=== PATIENT | male | born 1985 | race American Indian/Alaskan Native ===

== ENCOUNTER 2016-10-13 05:30 | Emergency (ER) | payer SELFPAY ==
[2016-10-13] MEDS ORDERED: TORADOL IM ONE (11:04)
[2016-10-13 11:17] VITALS: BP 130/66
[2016-10-13] MEDS ORDERED: BOOSTRIX IM ONE (11:23)
[2016-10-13] MEDS ORDERED: MARCAINE-EPI 0.5%-1:200,000 INFILTRATI NR (11:30)
[2016-10-13] MEDS ORDERED: MARCAINE 0.5% INFILTRATI ONE (12:26)
--- NOTE | 2016-10-13 18:41 | Emergency Department Report ---
Entered by RIKY TOVAR, acting as scribe for DAMARIS ACOSTA NP. <DAMARIS ACOSTA - Last Filed: 10/13/16 18:41> ED General Adult HPI - General Chief complaint: Skin/Abscess/Foreign Body Stated complaint: BOIL Time Seen by Provider: 10/13/16 10:28 Source: patient Mode of arrival: Ambulatory Limitations: No Limitations - History of Present Illness Initial comments: This is a 30 year old male, well nourished in appearance, no acute signs of distress, with no significant PMHx presents to the ED c/o boil around genital area for 4 days. Patient states he shaved around his genital area and noticed the boil a small boil 2 days after shaving. Patient stated boil is getting big since 2 days ago. Patient reports he put a hot towel on boil with no relief. Patient denies fever, chills, chest pain, SOB, headache, stiff neck, shortness of breath, and pus/draiange. Denies HIV positive or STD exposure. NKDA. KRISHNAN Complaint: Abscess -: days(s) (4) Location: genitals Radiation: non-radiation Severity scale (0 -10): 3 Quality: burning Consistency: constant Improves with: none Worsens with: none Associated Symptoms: denies other symptoms. denies: confusion, chest pain, cough, diaphoresis, fever/chills, headaches, malaise, nausea/vomiting, rash, seizure, syncope, weakness Treatments Prior to Arrival: none - Related Data Previous Rx's Medication Instructions Recorded Last Taken Type Clindamycin [Clindamycin CAP] 450 mg PO Q8HR 7 Days 10/13/16 Unknown Rx Ibuprofen [Motrin 600 MG tab] 600 mg PO Q8H PRN #30 tablet 10/13/16 Unknown Rx Allergies Allergy/AdvReac Type Severity Reaction Status Date / Time No Known Allergies Allergy Verified 10/13/16 06:32 ED Review of Systems Comment: All other systems reviewed and negative Constitutional: denies: chills, fever Eyes: denies: eye pain, eye discharge, vision change ENT: denies: ear pain, throat pain Respiratory: denies: cough, shortness of breath, wheezing Cardiovascular: denies: chest pain, palpitations Endocrine: no symptoms reported Gastrointestinal: denies: abdominal pain, nausea, vomiting, diarrhea Genitourinary: denies: urgency, dysuria, frequency Musculoskeletal: denies: back pain, joint swelling, arthralgia Skin: other (boil around groin). denies: rash, lesions Neurological: denies: headache, weakness, numbness, paresthesias Psychiatric: denies: anxiety, depression Hematological/Lymphatic: denies: easy bleeding, easy bruising ED Past Medical Hx - Past Medical History Previous Medical History?: No - Surgical History Past Surgical History?: No - Social History Smoking Status: Current Every Day Smoker Substance Use Type: None - Medications Home Medications: Home Medications Medication Instructions Recorded Confirmed Last Taken Type Clindamycin [Clindamycin CAP] 450 mg PO Q8HR 7 Days 10/13/16 Unknown Rx Ibuprofen [Motrin 600 MG tab] 600 mg PO Q8H PRN #30 tablet 10/13/16 Unknown Rx ED Physical Exam - General Limitations: No Limitations General appearance: alert, in no apparent distress - Head Head exam: Present: atraumatic, normocephalic, normal inspection - Eye Eye exam: Present: normal appearance, PERRL, EOMI. Absent: scleral icterus, conjunctival injection, nystagmus, periorbital swelling, periorbital tenderness Pupils: Present: normal accommodation - ENT ENT exam: Present: normal exam, normal orophraynx, mucous membranes moist, TM's normal bilaterally, normal external ear exam - Neck Neck exam: Present: normal inspection, full ROM. Absent: tenderness, meningismus, lymphadenopathy - Respiratory Respiratory exam: Present: normal lung sounds bilaterally. Absent: respiratory distress, wheezes, rales, rhonchi, stridor, chest wall tenderness, accessory muscle use, decreased breath sounds, prolonged expiratory - Cardiovascular Cardiovascular Exam: Present: regular rate, normal rhythm, normal heart sounds. Absent: bradycardia, tachycardia, irregular rhythm, systolic murmur, diastolic murmur, rubs, gallop - GI/Abdominal GI/Abdominal exam: Present: soft, normal bowel sounds. Absent: distended, tenderness, guarding, rebound, rigid, diminished bowel sounds - Rectal Rectal exam: Present: deferred - Extremities Exam Extremities exam: Present: normal inspection, full ROM, normal capillary refill. Absent: tenderness, pedal edema, joint swelling, calf tenderness - Back Exam Back exam: Present: normal inspection, full ROM. Absent: tenderness, CVA tenderness (R), CVA tenderness (L), muscle spasm, paraspinal tenderness, vertebral tenderness, rash noted - Neurological Exam Neurological exam: Present: alert, oriented X3, CN II-XII intact, normal gait, reflexes normal - Psychiatric Psychiatric exam: Present: normal affect, normal mood - Skin Skin exam: Present: warm, dry. Absent: rash - Expanded Skin Exam Expanded Type of lesion: Present: abscess (3 cm boil and right upper groin. Positive fluctuance. Swelling noted. No lymphadenopathy. No pus or drainage noted. Tender to touch.). Absent: rash, laceration, foreign body, bite/sting, abrasion 1 - 3 cm abscess ED Course Vital Signs 10/13/16 10/13/16 10/13/16 05:36 11:16 11:25 Temperature 97 F L Pulse Rate 59 L 61 Respiratory 16 16 16 Rate Blood Pressure 119/91 130/66 [Right] O2 Sat by Pulse 100 100 Oximetry - Reevaluation(s) Reevaluation #1: 10/13/16 11:32 Patient is able speak full sentences with no signs of distress noted. - I & D Groin Type of Procedure: Complex Site: right upper groin Blade Size: 11 I & D Procedure: betadine prep, sterile drapes applied, sterile dressing applied Progress: Under sterile field, I used Betadine to cleanse the area. I then used an 11 blade to make a 1 cm incision. About 2 mL's of purulent drainage has been noted. I then used a hemostat to break the abscess formation. I then used sterile 0.9% normal saline flush to flush the wound with total volume of 40 mL used. I then put a 1/4 iodoform packing to the incision. A sterile 4 x 4 with tape has been applied as dressing. Bleeding is under control. Patient tolerated the procedure well with no signs of distress noted. ED Medical Decision Making - Medical Decision Making Ed course: This is a 30-year-old male that presents with abscess to groin region 1- Patient was examined by myself. Incision and drainage was performed to 3 cm abscess. About 2 mL of purulent drainage noted. Patient received Toradol and tetanus in the ED 2- patient received clindamycin at time of discharge. 3- patient was instructed to follow up with primary care doctor in 3-5 days or if symptoms such as increased swelling, fever, chills, chest pain or shortness of breath return to emergency room as soon as possible. 4- patient was instructed to return to emergency room in 2 days for packing removal. 5- At time time of discharge, the patient does not seem toxic or ill in appearance. No acute signs of distress noted. Patient agrees to discharge treatment plan of care. No further questions noted by the patient. ED Disposition Disposition: DC-01 TO HOME OR SELFCARE Is pt being admited?: No Does the pt Need Aspirin: No Condition: Stable Instructions: Clindamycin (By mouth), Ibuprofen (By mouth), Abscess Incision and Drainage (ED), Acute Wound Care (ED), Abscess (ED) Additional Instructions: follow up with primary care doctor in 3-5 days or if symptoms such as increased swelling, fever, chills, chest pain or shortness of breath return to emergency room as soon as possible. Return to emergency room in 2 days for packing removal. Finish full course of antibiotic that was prescribed to. Prescriptions: Clindamycin [Clindamycin CAP] 450 mg PO Q8HR 7 Days Ibuprofen [Motrin 600 MG tab] 600 mg PO Q8H PRN #30 tablet PRN Reason: Pain Referrals: PRIMARY CAREMD [Primary Care Provider] - 3-5 Days INGRID KEITH MD [Staff Physician] - 3-5 Days [facility] [Outside] - 3-5 Days [facility] [Outside] - 3-5 Days Forms: Work/School Release Form(ED) <LYUDMILA GOLDSTEIN - Last Filed: 10/14/16 19:54> ED Course - Reevaluation(s) Reevaluation #2: 10/14/16 19:52 pt is at Pharmacy now and has called in, he states he could not afford clindamycin therefor I will Rx Keflex and bactrim. 10/14/16 19:54 This documentation as recorded by the GUY crawford PEARL,accurately reflects the service I personally performed and the decisions made by ,DAMARIS ACOSTA, [employer] ADMINISTRATOR.
== END 2016-10-13 12:34 | disposition home or self-care (01) ==
LOC: ED 05:30
DX: L02.214 Cutaneous abscess of groin (principal); F17.200 Nicotine dependence, unspecified, uncomplicated
CPT/HCPCS: 10061; 90471; 90715; 96372; 99282; J1885